=== PATIENT | male | born 1965 ===

== ENCOUNTER 2017-02-11 11:31 | Observation (INO) | payer OTHER ==
[2017-02-11] MEDS ORDERED: NS 1,000 ML IV ONE ×2 (11:39→11:57)
--- NOTE | 2017-02-11 11:39 | EDPHY ---
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 Denies trauma or headache. Apparently EMS was called because the patient was staggering and appeared confused. The onset of his symptoms is unknown at this time, the last known normal is unknown. On arrival he denies chest pain or shortness of breath. Admits to alcohol. He knows his age but does not know his date. He is texting on his phone. REVIEW OF SYSTEMS: Eye: no change in vision ENT: no sore throat Cardiac: no chest pain or syncope Pulmonary: no cough or SOB Abdomen: no vomiting, diarrhea, abdominal pain Musculoskeletal: no back pain or neck pain, denies trauma or injury. Skin: no rash Neuro: no headache Constitutional: no fever : no urinary symptoms Denies intentional overdose or suicidal ideation. A comprehensive 10 point review of systems and further history is limited by the patient's altered mental status. PAST MEDICAL HISTORY: Denies previous medical history. 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 Unknown if drug ingestion. General Appearance: Alert and conversant, cooperative. Eyes: No scleral icterus. ENT, Mouth: Normal mucous membranes. No tongue laceration or abrasion. Respiratory: Normal respiratory effort, breath sounds equal, lungs are clear to auscultation. Cardiovascular: Regular rate and rhythm. Tachycardic. No murmur. Gastrointestinal: Abdomen is soft and non tender. Neurological: Alert, knows his name but not his date. Follows commands. Normally conversant. Face symmetric, normal movement and sensation in all extremities. Skin: Warm and dry, no rashes. Musculoskeletal: No peripheral edema and no joint swelling. Psychiatric: Not agitated. Denies suicidal ideation or overdose. Emergency Department course/MDM: Adenosine 6 and then 12 mg IV given for narrow complex tachycardia up to a rate of 170. Slow down to about 120 and then back up. 1343: On diltiazem drip, heart rate 130. Consulted with Dr. Hatfield from Cardiology regarding patient's rhythm. Troponin noted to be elevated. Admission for neurologic observation and cardiology consultation and heart monitoring. CT head for encephalopathy is negative. 1350: Kelsey for Sadie. 1440: Cocaine positive, discussed with Dr. Hatfield, 1 mg IV Ativan. Heart rate 130. Chest x-ray reviewed does not show pulmonary edema. Admission to Step-Down Unit for cardiac monitoring, neurologic monitoring. Constitutional: Initial Vital Signs Temperature (C) 37.2 C 02/11/17 11:35 Heart Rate 140 H 02/11/17 11:35 Respiratory Rate 16 02/11/17 11:35 Blood Pressure 135/75 H 02/11/17 11:35 O2 Sat (%) 97 02/11/17 11:35 O2 Delivery Mode Room Air Allergies/Adverse Reactions: No Known Allergies Allergy (Unverified 02/11/17 11:46) Home Medications: Medication Instructions Recorded Omeprazole [Prilosec 20 mg] 20 mg PO DAILY 02/11/17 Medical Decision Making - Diagnostics EKG Interpretation: 12-lead EKG interpreted by me; official reading is in trace master. My interpretation is sinus tachycardia, left atrial abnormality, QRS duration 94. Nonspecific T-wave abnormalities. Imaging Results: Imaging Impressions Chest X-Ray 02/11/17 11:58 Impression: Suspect COPD/airways disease. Head CT 02/11/17 12:51 Impression: Normal brain. No acute intracranial hemorrhage, subdural hematoma, or mass. Findings discussed with Emergency Department physician, Nacho Gleason, at 1339 hours 02/11/2017. Normal head CT per Miguel at 1:38 p.m. Differential Diagnosis: Differential diagnosis considered for narrow complex tachycardia including but not limited to various causes of sinus tachycardia, SVT, atrial flutter and atrial fibrillation. Consult/Admit Bed Type: [place] [id number] Critical Care Time: Critical care time spent by me, Dr. Gleason, exclusively with the care of this patient was 45 minutes, exclusive of PA or INVESTIGATIVE ASSISTANT time and exclusive of separate procedures. The organ system at risk was neurologic and cardiovascular and I ordered multiple diagnostic studies, IV adenosine and diltiazem, IV Ativan, serial examinations, discussion with financial planning consultant hospitalist; additional IV fluids, to stabilize the patient and prevent worsening of the patient's condition. - Data Points Laboratory Results: Laboratory Results 02/11/17 11:30 02/11/17 11:30 02/11/17 02/11/17 11:30 11:30 WBC 14.19 10^3/uL H 10^3/uL (3.80-9.50) RBC 5.95 10^6/uL 10^6/uL (4.40-6.38) Hgb 18.3 g/dL H g/dL (13.7-17.5) Hct 53.7 % H % (40.0-51.0) MCV 90.3 fL fL (81.5-99.8) MCH 30.8 pg pg (27.9-34.1) MCHC 34.1 g/dL g/dL (32.4-36.7) RDW 13.7 % % (11.5-15.2) Plt Count 191 10^3/uL 10^3/uL (150-400) MPV 11.6 fL fL (8.7-11.7) Neut % (Auto) 88.6 % H % (39.3-74.2) Lymph % (Auto) 5.7 % L % (15.0-45.0) Stanley % (Auto) 4.7 % % (4.5-13.0) Eos % (Auto) 0.0 % L % (0.6-7.6) Baso % (Auto) 0.2 % L % (0.3-1.7) Nucleat RBC Rel Count 0.0 % % (0.0-0.2) Absolute Neuts (auto) 12.58 10^3/uL H 10^3/uL (1.70-6.50) Absolute Lymphs (auto) 0.81 10^3/uL L 10^3/uL (1.00-3.00) Absolute Monos (auto) 0.66 10^3/uL 10^3/uL (0.30-0.80) Absolute Eos (auto) 0.00 10^3/uL L 10^3/uL (0.03-0.40) Absolute Basos (auto) 0.03 10^3/uL 10^3/uL (0.02-0.10) Absolute Nucleated RBC 0.00 10^3/uL 10^3/uL (0-0.01) Immature Gran % 0.8 % % (0.0-1.1) Immature Gran # 0.11 10^3/uL H 10^3/uL (0.00-0.10) Sodium 148 mEq/L H mEq/L (134-144) Potassium 4.4 mEq/L mEq/L (3.5-5.2) Chloride 109 mEq/L mEq/L (97-110) Carbon Dioxide 17 mEq/l L mEq/l (22-31) Anion Gap 22 mEq/L H mEq/L (8-16) BUN 8 mg/dL mg/dL (7-23) Creatinine 1.1 mg/dL mg/dL (0.7-1.3) Estimated GFR > 60 Glucose 120 mg/dL H mg/dL (70-100) Calcium 9.9 mg/dL mg/dL (8.5-10.4) Troponin I 0.062 ng/mL H ng/mL (0-0.034) Ethyl Alcohol 156 mg/dL H mg/dL (0-10) Medications Given: Discontinued Medications Adenosine (Adenosine) 6 mg IVP EDNOW ONE Stop: 02/11/17 12:01 Last Admin: 02/11/17 12:02 Dose: 6 mg Adenosine (Adenosine) 6 mg IVP EDNOW ONE Stop: 02/11/17 12:12 Last Admin: 02/11/17 12:12 Dose: 12 mg Diltiazem HCl (Cardizem 25 Mg/5 Ml Vial) 10 mg IVP EDNOW ONE Stop: 02/11/17 12:14 Last Admin: 02/11/17 12:21 Dose: 10 mg Sodium Chloride (Ns) 1,000 mls @ 0 mls/hr IV ONCE ONE; Wide Open PRN Reason: Protocol Stop: 02/11/17 11:40 Last Admin: 02/11/17 11:40 Dose: 1,000 mls Sodium Chloride (Ns) 1,000 mls @ 0 mls/hr IV EDNOW ONE; Wide Open PRN Reason: Protocol Stop: 02/11/17 11:58 Last Admin: 02/11/17 12:02 Dose: 1,000 mls Diltiazem HCl 125 mg/ Dextrose 125 mls @ 0 mls/hr IV EDNOW ONE; As Directed PRN Reason: Protocol Stop: 02/11/17 12:14 Last Admin: 02/11/17 12:41 Dose: 125 mls Lorazepam (Ativan Injection) 1 mg IVP EDNOW ONE Stop: 02/11/17 14:45 Last Admin: 02/11/17 14:54 Dose: 1 mg Departure - Departure Disposition: [facility] Acute Clinical Impression: Narrow complex tachycardia Alcohol intoxication Qualifiers: Complication of substance-induced condition: uncomplicated Qualified Code(s): F10.920 - Alcohol use, unspecified with intoxication, uncomplicated Altered mental status Qualifiers: Altered mental status type: unspecified Qualified Code(s): R41.82 - Altered mental status, unspecified Condition: Fair
--- NOTE | 2017-02-11 11:49 | CPEKG ---
Heart Rate: 143 RR Interval: 420 P-R Interval: 128 QRSD Interval: 94 QT Interval: 292 QTC Interval: 451 P [place]: 0 QRS [place]: 64 T Wave [place]: -67 EKG Severity - ABNORMAL ECG - EKG Impression: SINUS TACHYCARDIA EKG Impression: PROBABLE LEFT ATRIAL ABNORMALITY EKG Impression: NONSPECIFIC T ABNORMALITIES, INFERIOR LEADS Electronically Signed By: Nacho Gleason 11-Feb-2017 14:50:13
[2017-02-11] MEDS ORDERED: ADENOSINE 6 MG/2 ML VIAL IVP ONE (12:00)
[2017-02-11] MEDS ORDERED: ADENOSINE 6 MG/2 ML VIAL ONE ×2 (12:00→12:08)
[2017-02-11] MEDS: ADENOSINE 6 MG/2 ML VIAL IVP ONE ×2 (12:11→12:12)
[2017-02-11 12:12] LABS: % IMMATURE GRANULYOCYTES 0.8 % (0.0-1.1); ABSOLUTE IMMATURE GRANULOCYTES 0.11 10^3/uL (0.00-0.10); ADD DIFF? NO; ADD MORPH? NO; ADD SCAN? NO; ATYPICAL LYMPHOCYTE FLAG 0 (0-99); FRAGMENT RBC FLAG 0 (0-99); HEMATOCRIT 53.7 % (40.0-51.0); HEMOGLOBIN 18.3 g/dL (13.7-17.5); LEFT SHIFT FLG 0 (0-99); LIPEMIA HEMOLYSIS FLAG 90 (0-99); MEAN CELL HEMOGLOBIN 30.8 pg (27.9-34.1); MEAN CELL HEMOGLOBIN CONCENTR. 34.1 g/dL (32.4-36.7); MEAN CELL VOLUME 90.3 fL (81.5-99.8); MEAN PLATELET VOLUME 11.6 fL (8.7-11.7); PLATELET CLUMPS FLAG 0 (0-99); PLATELET COUNT 191 10^3/uL (150-400); RED BLOOD CELL COUNT 5.95 10^6/uL (4.40-6.38); RED CELL DISTRIBUTION WIDTH 13.7 % (11.5-15.2)
[2017-02-11] MEDS ORDERED: DILTIAZEM 25 MG/5 ML VIAL IVP ONE (12:13)
[2017-02-11] MEDS ORDERED: DILTIAZEM 125 MG in D5W 125 ML IV ONE (12:13)
[2017-02-11] MEDS ORDERED: NS 50 ML BAG IV ONE (12:17)
--- NOTE | 2017-02-11 12:21 | CPEKG ---
Heart Rate: 158 RR Interval: 380 P-R Interval: 68 QRSD Interval: 98 QT Interval: 296 QTC Interval: 480 P [place]: 0 QRS [place]: 85 T Wave [place]: -27 EKG Severity - ABNORMAL ECG - EKG Impression: SINUS TACHYCARDIA EKG Impression: ABNRM R PROG, CONSIDER ASMI OR LEAD PLACEMENT EKG Impression: NONSPECIFIC REPOL ABNORMALITY, DIFFUSE LEADS EKG Impression: BORDERLINE PROLONGED QT INTERVAL Electronically Signed By: Nacho Gleason 11-Feb-2017 14:50:05
[2017-02-11 12:23] LABS: ANION GAP 22 mEq/L (8-16); CALCIUM 9.9 mg/dL (8.5-10.4); CARBON DIOXIDE 17 mEq/l (22-31); CHLORIDE 109 mEq/L (97-110); CREATININE 1.1 mg/dL (0.7-1.3); ETHANOL SERUM 156 mg/dL (0-10); GLOMERULAR FILTRATION RATE > 60; GLUCOSE 120 mg/dL (70-100); POTASSIUM 4.4 mEq/L (3.5-5.2); SODIUM 148 mEq/L (134-144)
[2017-02-11 12:35] LABS: TROPONIN I 0.062 ng/mL (0-0.034)
[2017-02-11] MEDS ORDERED: LORazepam 2 MG/ML INJ IVP ONE (14:44)
[2017-02-11] MEDS ORDERED: ACETAMINOPHEN 325 MG TAB PO PRN (16:00)
[2017-02-11] MEDS ORDERED: NICOTINE 21 MG/24 HR PATCH TD SCH (16:00)
[2017-02-11] MEDS ORDERED: NICOTINE POLACRILEX 2 MG GUM B PRN (16:00)
[2017-02-11] MEDS ORDERED: ONDANSETRON 4 MG/2 ML VIAL IVP PRN (16:00)
[2017-02-11] MEDS ORDERED: IBUPROFEN 200 MG TAB PO PRN (16:00)
[2017-02-11] MEDS ORDERED: NS 1,000 ML IV SCH (16:00)
[2017-02-11] MEDS ORDERED: ONDANSETRON DISINTEGRATING 4 MG TAB PO PRN (16:00)
[2017-02-11] MEDS ORDERED: LORazepam 2 MG/ML INJ IVP PRN (16:08)
[2017-02-11] MEDS ORDERED: LORazepam 1 MG TAB PO PRN (16:08)
[2017-02-11 16:11] VITALS: BP 127/79; PULSE 111; RESP 22; TEMP 98.5; O2SAT 92
--- NOTE | 2017-02-11 16:19 | PDGENHP ---
History and Physical - Chief Complaint Acute encephalopathy - History of Present Illness primary care provider: In [facility] History of present illness: 51-year-old male presents with acute encephalopathy characterized as disorientation, confusion, associated with dysarthria and ataxic gait, onset of symptoms on the morning of this presentation, witnessed by a [employer] staff member, resulting in presentation to [facility] Emergency Department. Prior to his onset of symptoms, the patient reports that he and his had gone to a [employer] on the evening prior to this presentation. Reports that he drank 3 alcoholic beverages and he and his got into an argument. Patient reports that he contacted 1 of the [facility] residents, and he reports that he has no recollection of any of the following events for the rest of the night. 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 He interacted with 1 of the kitchen staff members and he recalls drinking some water and coffee. Reports that he did not drink alcohol on the morning of this presentation. He reports that 1 of the [facility] residents told him that they imbibed in cocaine and Red Bull with alcohol all night. The patient denies any overt chest pain, shortness of breath, infectious symptoms. He does report that he has had a chronic cough for the past month which is alleviated by Cepacol lozenges. He denies ever blacking out in the past and he is regretful of the situation. History Information - Allergies/Home Medication List Allergies/Adverse Reactions: No Known Allergies Allergy (Unverified 02/11/17 11:46) Home Medications: Omeprazole [Prilosec 20 mg] 20 mg PO DAILY 02/11/17 [Last Taken Unknown] I have personally reviewed and updated: family history, medical history, social history, surgical history - Past Medical History Additional medical history: Hepatitis-C virus, responded to [facility], recently completed. 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 [facility] Review of Systems ROS: 10pt was reviewed & negative except for what was stated in HPI & below Constitutional: Reports: malaise, other ( patient reports he feels hung over) Physical Exam Temp Pulse Resp BP Pulse Ox 36.9 C 111 H 22 H 127/79 H 92 02/11/17 15:32 02/11/17 15:32 02/11/17 15:32 02/11/17 15:32 02/11/17 15:32 O2 (L/minute) 2 Constitutional: uncomfortable, other ( flushed appearing) Eyes: scleral injection, other ( dilated pupils, right greater than left) Ears, Nose, Mouth, Throat: hearing normal, dry mucous membranes Cardiovascular: tachycardia, No systolic murmur, No irregularly irregular, No edema Respiratory: no respiratory distress, no rales or rhonchi, clear to auscultation Gastrointestinal: normoactive bowel sounds, soft, non-tender abdomen, no palpable masses, No distension Skin: other ( flush, blanchable, most notable over the shoulders and chest) Neurologic: AAOx3, sensation intact bilaterally, CN II-XII Intact, No weakness ( motor strength 5/5 bilateral upper and lower extremities), No asterixes ( no tremulousness) Psychiatric: thought process linear, anxious, poor memory, other ( concentration is 7/7 but the patient does demonstrate some cognitive slowing and also requires redirection), No agitated Lymph, Heme, Immunologic: other ( palpable but nontender 1 cm submandibular lymph nodes bilaterally) Lab Data & Imaging Review 02/11/17 11:30 02/11/17 11:30 WBC 14.19 10^3/uL (3.80-9.50) H 02/11/17 11:30 RBC 5.95 10^6/uL (4.40-6.38) 02/11/17 11:30 Hgb 18.3 g/dL (13.7-17.5) H 02/11/17 11:30 Hct 53.7 % (40.0-51.0) H 02/11/17 11:30 MCV 90.3 fL (81.5-99.8) 02/11/17 11:30 MCH 30.8 pg (27.9-34.1) 02/11/17 11:30 MCHC 34.1 g/dL (32.4-36.7) 02/11/17 11:30 RDW 13.7 % (11.5-15.2) 02/11/17 11:30 Plt Count 191 10^3/uL (150-400) 02/11/17 11:30 MPV 11.6 fL (8.7-11.7) 02/11/17 11:30 Neut % (Auto) 88.6 % (39.3-74.2) H 02/11/17 11:30 Lymph % (Auto) 5.7 % (15.0-45.0) L 02/11/17 11:30 Page % (Auto) 4.7 % (4.5-13.0) 02/11/17 11:30 Eos % (Auto) 0.0 % (0.6-7.6) L 02/11/17 11:30 Baso % (Auto) 0.2 % (0.3-1.7) L 02/11/17 11:30 Nucleat RBC Rel Count 0.0 % (0.0-0.2) 02/11/17 11:30 Absolute Neuts (auto) 12.58 10^3/uL (1.70-6.50) H 02/11/17 11:30 Absolute Lymphs (auto) 0.81 10^3/uL (1.00-3.00) L 02/11/17 11:30 Absolute Monos (auto) 0.66 10^3/uL (0.30-0.80) 02/11/17 11:30 Absolute Eos (auto) 0.00 10^3/uL (0.03-0.40) L 02/11/17 11:30 Absolute Basos (auto) 0.03 10^3/uL (0.02-0.10) 02/11/17 11:30 Absolute Nucleated RBC 0.00 10^3/uL (0-0.01) 02/11/17 11:30 Immature Gran % 0.8 % (0.0-1.1) 02/11/17 11:30 Immature Gran # 0.11 10^3/uL (0.00-0.10) H 02/11/17 11:30 Sodium 148 mEq/L (134-144) H 02/11/17 11:30 Potassium 4.4 mEq/L (3.5-5.2) 02/11/17 11:30 Chloride 109 mEq/L (97-110) 02/11/17 11:30 Carbon Dioxide 17 mEq/l (22-31) L 02/11/17 11:30 Anion Gap 22 mEq/L (8-16) H 02/11/17 11:30 BUN 8 mg/dL (7-23) 02/11/17 11:30 Creatinine 1.1 mg/dL (0.7-1.3) 02/11/17 11:30 Estimated GFR > 60 02/11/17 11:30 Glucose 120 mg/dL (70-100) H 02/11/17 11:30 Calcium 9.9 mg/dL (8.5-10.4) 02/11/17 11:30 Troponin I 0.062 ng/mL (0-0.034) H 02/11/17 11:30 Urine Opiates Screen NEGATIVE (NEGATIVE) 02/11/17 14:09 Urine Barbiturates NEGATIVE (NEGATIVE) 02/11/17 14:09 Ur Phencyclidine Scrn NEGATIVE (NEGATIVE) 02/11/17 14:09 Ur Amphetamine Screen NEGATIVE (NEGATIVE) 02/11/17 14:09 U Benzodiazepines Scrn NEGATIVE (NEGATIVE) 02/11/17 14:09 Urine Cocaine Screen NON-NEGATIVE (NEGATIVE) H 02/11/17 14:09 U Marijuana (THC) Screen NEGATIVE (NEGATIVE) 02/11/17 14:09 Ethyl Alcohol 156 mg/dL (0-10) H 02/11/17 11:30 Visualized and Interpreted Chest x-ray results: Yes Chest X-Ray results: no infiltrate Visualized and Interpreted EKG results: Yes EKG Interpretation: Positive for: other ( sinus tachycardia versus supraventricular tachycardia with ST depressions in leads V5 and V6) Assessment & Plan Assessment: 51-year-old male presents with acute encephalopathy in the setting of cocaine and alcohol concomitant intoxication, resulting in systemic inflammatory response syndrome, acute metabolic acidosis, hypernatremia Plan: 1. Encephalopathy. Acute, evidenced by global brain dysfunction characterized as disorientation, confusion, slowed thought processes as well as dysarthria and ataxic gait on presentation, all of which is an acute change from his baseline - secondary to the toxic effects of alcohol and cocaine, as well as possible metabolic acidosis - continue to monitor, he is currently not mentating at baseline and requires additional time since his ingestion as well as treatment for the acidosis - not manifesting any infectious symptoms 2. Metabolic acidosis. Acute, new problem this provider, further workup indicated. Anion gap acidosis most likely secondary to ketoacidosis from alcohol ingestion, may also have a lactic acid component in the setting of cocaine and hypovolemia - get pH, get lactic acid - give IV fluids and repeat serum chemistry in a.m. 3. Systemic inflammatory response syndrome. Evidenced by tachycardia and leukocytosis, most likely secondary to acute ingestion of cocaine, not manifesting any infectious symptoms - EKG demonstrating sinus tachycardia, discussed with Dr. Nacho Gleason in the emergency department, he has reported to me that the patient did not demonstrate a atrial arrhythmia after adenosine and the rhythm has slowed with diltiazem drip into what appears to be a sinus tachycardia - cardiology consultation by Dr. Hatfield appreciated - continue diltiazem drip but wean it down so we can see what the patient's actual heart rate would be - repeat CBC in a.m. 4. Abnormal troponin level. Most likely secondary to myocardial strain in the setting of tachycardia from cocaine, the patient has some subtle ST depressions on EKG and an echocardiogram is indicated to ensure no focal wall motion abnormalities in this 51-year-old who has ingested cocaine and placed himself at risk for plaque rupture as well as vaso spasm - cycle cardiac enzymes 5. hypernatremia. Acute, secondary to poor free water intake in the setting of intoxication, he has received normal saline and will repeat his labs at 6:00 p.m., giving him normal saline until that time but potentially adjusting to a D5 half-normal saline solution depending on his serum sodium level 6. Alcoholism. Although the patient denies ever having blacked out, the situation raises questions as this patient's history of alcohol use and I suspect that he will experience degree of alcohol withdrawal, that being said, he denies ever experiencing seizure in the past - placed on a [facility] protocol - monitor liver panel Diet. Regular Prophylaxis. Low risk patient, SCDs Code. Full Disposition. Anticipated discharge uncertain, anticipated length stay is greater than 48 hours warranting inpatient admission status for acute encephalopathy with comma systemic inflammatory response syndrome and acute metabolic acidosis requiring step-down unit level care and further workup. The patient is critically ill and greater than 45 minutes of critical care time were spent at bedside with patient, addressing the issues above as well as coordinating his care.
[2017-02-11] MEDS ORDERED: CEPACOL LOZENGE PO PRN (16:35)
[2017-02-11] MEDS ORDERED: DILTIAZEM 125 MG in D5W 125 ML IV SCH (16:45)
[2017-02-11 17:55] LABS: PCO2 VENOUS 33 mmHg (40-44); PH VENOUS BLOOD 7.37 (7.31-7.42); PO2 VENOUS 105 mmHg (35-40); TCO2 VENOUS 20 mEq/L (23-27); VEN MEASURED OXYGEN SATURATION 98 % (65-75)
[2017-02-11 18:00] LABS: % IMMATURE GRANULYOCYTES 0.3 % (0.0-1.1); ABSOLUTE IMMATURE GRANULOCYTES 0.04 10^3/uL (0.00-0.10); ADD DIFF? NO; ADD MORPH? NO; ADD SCAN? NO; ATYPICAL LYMPHOCYTE FLAG 0 (0-99); FRAGMENT RBC FLAG 0 (0-99); HEMOGLOBIN 15.2 g/dL (13.7-17.5); LEFT SHIFT FLG 0 (0-99); LIPEMIA HEMOLYSIS FLAG 90 (0-99); MEAN CELL HEMOGLOBIN 30.2 pg (27.9-34.1); MEAN CELL HEMOGLOBIN CONCENTR. 33.8 g/dL (32.4-36.7); MEAN CELL VOLUME 89.5 fL (81.5-99.8); MEAN PLATELET VOLUME 11.1 fL (8.7-11.7); PLATELET CLUMPS FLAG 0 (0-99); PLATELET COUNT 122 10^3/uL (150-400); RED BLOOD CELL COUNT 5.03 10^6/uL (4.40-6.38); RED CELL DISTRIBUTION WIDTH 13.7 % (11.5-15.2)
[2017-02-11 18:11] LABS: ALANINE AMINOTRANSFERASE 45 IU/L (21-72); ALBUMIN 3.8 g/dL (3.5-5.0); ALKALINE PHOSPHATASE 52 IU/L (38-126); ANION GAP 12 mEq/L (8-16); ASPARTATE AMINOTRANSFERASE 84 IU/L (17-59); BILIRUBIN,TOTAL 0.7 mg/dL (0.1-1.4); CALCIUM 8.4 mg/dL (8.5-10.4); CARBON DIOXIDE 17 mEq/l (22-31); CHLORIDE 114 mEq/L (97-110); CREATININE 0.8 mg/dL (0.7-1.3); GLOMERULAR FILTRATION RATE > 60; GLUCOSE 83 mg/dL (70-100); POTASSIUM 4.2 mEq/L (3.5-5.2); SODIUM 143 mEq/L (134-144); TOTAL PROTEIN 6.4 g/dL (6.3-8.2)
[2017-02-11 20:46] LABS: CK-MB INTERPRETATION NEGATIVE (NEGATIVE)
[2017-02-12] MEDS ORDERED: PANTOPRAZOLE SODIUM 40 MG TAB PO SCH (09:00)
[2017-02-12] MEDS ORDERED: NON-FORMULARY NEW DRUG (Omeprazole [Prilosec 20 Mg] 20 MG) PO SCH (09:00)
== END 2017-02-11 20:15 | disposition left against medical advice (07) ==
LOC: EDBD 11:31 → INTOOBSV 13:51 → F2N 15:47
PROVIDERS: ADMIT Internal Medicine; ATTEND Internal Medicine
DX: G93.49 Other encephalopathy (principal); R00.0 Tachycardia, unspecified; R65.10 Systemic inflammatory response syndrome (SIRS) of non-infectious origin without acute organ dysfunction; E87.2 Acidosis; E87.0 Hyperosmolality and hypernatremia; F10.988 Alcohol use, unspecified with other alcohol-induced disorder; F10.220 Alcohol dependence with intoxication, uncomplicated; F14.120 Cocaine abuse with intoxication, uncomplicated; R79.89 Other specified abnormal findings of blood chemistry; F17.200 Nicotine dependence, unspecified, uncomplicated; Y90.6 Blood alcohol level of 120-199 mg/100 ml
CPT/HCPCS: 70450; 71020; 93005; G0378; 80305; 96365; G0480; J0153; J2060